=== PATIENT | female | born 1975 | race Caucasian/White ===

== ENCOUNTER → 2016-08-28 | Outpatient (CLI) | payer BC ==
[~2016-08-28] VITALS: Ht 170.2 cm; Wt 146.0 kg
[~2016-08-28] MED LIST: AMBIEN DPS10 MG PO; AUGMENTIN875 MG PO; CARVEDILOL25 MG PO; COZAAR DPS25 MG PO; DUONEB DPS3 ML IH; GLUCAGON1 MG/ML IM; GLUTOSE 1537.5 GM PO; HABITROL DPS14 MG TP; HUMALOG U-100 UNITS/ SQ; HYDROCODON-ACE1 EAC2 PO; LANTUS100 UNITS/ SQ; LASIX DPS80 MG PO; LEVEMIR100 UNIT/1 PO; MAALOX DPS30 ML PO; MICRO-K DPS10 MEQ PO; MIRALAX PACKET17 GM PO; MUCINEX600 MG PO; NASONEX NASAL S17 GM NS; NICOTINE PATCH1 EAC2 TD; NOVOLOG100 UNIT/2 SQ; PROVENTIL2.5 MG/0.5 IH; RESTORIL DPS30 MG PO; SURFAK DPS240 MG PO; TYLENOL DPS325 MG PO; VIBRAMYCIN-DPS100 M2 PO; ZAROXOLYN2.5 MG PO; ZOFRAN4 MG PO
== END | disposition home or self-care (01) ==
LOC: CARD 12:00 → EDSTATUS 08-30 08:12
DX: Z01.818 Encounter for other preprocedural examination (principal)

== ENCOUNTER 2016-10-12 20:56 | Emergency (ER) | payer BC, MEDICAID ==
[~2016-10-12 20:56] MED LIST changes: -AMBIEN DPS10 MG PO; -LANTUS100 UNITS/ SQ; -MICRO-K DPS10 MEQ PO; -MUCINEX600 MG PO; -NICOTINE PATCH1 EAC2 TD; -NOVOLOG100 UNIT/2 SQ; -PROVENTIL2.5 MG/0.5 IH; -VIBRAMYCIN-DPS100 M2 PO
--- NOTE | 2016-10-13 19:14 | ER ---
ADMIT: 10/12/2016 RM/LOC: ER [facility] MR#: [id number] [address] [address] [address]LA [address] [place] [address] Emergency Room Report SEX: F AGE: 41 : 1975 DATE: 10/12/2016 HISTORY OF PRESENT ILLNESS: The patient is a 41-year-old presents to the emergency room complaining of right upper quadrant abdominal pain for about 3 months on and off. She ate, about 2 hours later the pain worsened. She feels like food sitting in her stomach. REVIEW OF SYSTEMS: Otherwise negative. PAST MEDICAL HISTORY: Diabetes type 2 with some renal insufficiency, congestive heart failure, and hypertension, insomnia, lymph edema. MEDICATIONS: The patient takes: 1. Insulin. 2. NovoLog. 3. Levemir. 4. Carvedilol. 5. Restoril. 6. Losartan. 7. Lasix. 8. Metolazone. PHYSICAL EXAMINATION: VITAL SIGNS: 171/65, pulse 100, respirations 16, temp is 98.5, O2 sats 96%. ABDOMEN: The physical examination does show tenderness on deep palpation of right upper quadrant. No radiation. LABORATORY DATA: Lipase within normal limits. WBC is normal. Hemoglobin 10.3, BUN is 42, glucose 394. Sodium 133. Protein in the urine 2+ and glucose 1000. She improved with a GI cocktail. CLINICAL IMPRESSION: 1. Hyperglycemia. 2. Right upper quadrant abdominal pain. 3. Gastritis. 4. Renal insufficiency, chronic. The patient advised to follow up with Dr. Fung and Carafate prescription given. GUILLERMO Macias / Bernard Washington MD / silas JOB #: [id number] CC: Bernard Washington MD, Attending Physician Mary Fung MD, Family Physician
[2016-12-17] MEDS ORDERED: MICRO-K DPS10 MEQ PO (08:21)
[2016-12-17] MEDS ORDERED: PROVENTIL2.5 MG/0.5 IH (08:21)
[2016-12-17] MEDS ORDERED: LANTUS100 UNITS/ SQ (08:22)
[2016-12-17] MEDS ORDERED: NOVOLOG100 UNIT/2 SQ (08:22)
[2017-02-07] MEDS ORDERED: NOVOLOG100 UNIT/2 SQ (14:11)
[2017-02-07] MEDS ORDERED: NICOTINE PATCH1 EAC2 TD (14:12)
[2017-02-07] MEDS ORDERED: AMBIEN DPS10 MG PO (14:12)
[2017-02-07] MEDS ORDERED: MUCINEX600 MG PO (14:12)
[2017-02-07] MEDS ORDERED: VIBRAMYCIN-DPS100 M2 PO (14:13)
== END 2016-10-13 01:12 | disposition home or self-care (01) ==
LOC: ER 20:56
DX: K29.70 Gastritis, unspecified, without bleeding (principal); E11.22 Type 2 diabetes mellitus with diabetic chronic kidney disease; I12.9 Hypertensive chronic kidney disease with stage 1 through stage 4 chronic kidney disease, or unspecified chronic kidney disease; N18.9 Chronic kidney disease, unspecified; I50.9 Heart failure, unspecified; E11.65 Type 2 diabetes mellitus with hyperglycemia; F17.210 Nicotine dependence, cigarettes, uncomplicated; Z79.4 Long term (current) use of insulin

== ENCOUNTER 2016-12-15 10:43 | Observation (INO) | payer MEDICAID ==
[~2016-12-15] VITALS: Ht 170.2 cm; Wt 139.5 kg
--- NOTE | 2016-12-15 21:53 | NUR ---
12/15/161944 I entered the patient's room when an alarm on the datascope was ringing. I discovered that her sats were in the low 80s. She had her O2 off. She had previously come up on 4L from surgery. I asked to put her O2 back on and she refused. She stated her sats are that low at home all the time. I said "in the low 80s"? She stated yes. She stated she does not like the NC, it hurts her throat. I offered to put a humidity bottle on the O2 flow meter so it is not as drying and she stated that didn't help and was still refusing to wear the O2. I told her that I was going to document that she refused to wear the oxygen that was needed and she said that was okay. RN.[email or web address] 2100 & 2200. The patient wanted to sit on the edge of the bed. When moving to the edge, Christopher Rachel RN assisted and said that her sats went down into the 60s while doing this. I assisted her back into bed and her sats were in the low 70s. She had SOB after getting back to bed. I asked her if she was ready to have oxygen put back on and she said no. RN.[email or web address]
--- NOTE | 2016-12-15 21:53 | NUR ---
Requested that the patient put on O2 due to her sats being in the high 70's patient refused multiple times. Pt states that she just keeps forgetting that she is holding her breath and that is why her sats go down. Pt is currently sitting on the side of the bed in the tripod position. Pt states that she will wear her O2 when she is ready to go to bed but not before. Pt stated that the O2 was drying out her noise and a bubbler was put on Pt still refused the O2.
[2016-12-17] MEDS ORDERED: MICRO-K DPS10 MEQ PO (08:21)
[2016-12-17] MEDS ORDERED: PROVENTIL2.5 MG/0.5 IH (08:21)
[2016-12-17] MEDS ORDERED: LANTUS100 UNITS/ SQ (08:22)
[2016-12-17] MEDS ORDERED: NOVOLOG100 UNIT/2 SQ (08:22)
--- NOTE | 2017-01-11 11:41 | OR ---
ADMIT: 12/15/2016 RM/LOC: 633 [facility] MR#: [id number] [address] [address] [address] [place] [address] Operative/Delivery Room Report SEX: F AGE: 41 : 1975 Corrected: 12/18/2016 0621 [facility] SURGERY DATE: 12/15/2016 SURGEON: Yeison Antunez MD ETL DATABASE DEVELOPER: Petey Hyde MD. PREPROCEDURE DIAGNOSIS: Chronic cholecystitis. POSTPROCEDURE DIAGNOSIS: Chronic cholecystitis. PROCEDURE: Laparoscopic cholecystectomy with intraoperative cholangiogram. INDICATIONS: The patient is a morbidly obese, 41-year-old female, previously evaluated by Dr. Hyde with signs and symptoms of radiographic evidence consistent with chronic cholecystitis, who presents for laparoscopic cholecystectomy. FINDINGS: The patient was taken to the operating room. General endotracheal anesthesia was induced. The patient's abdomen was prepped and draped in normal sterile fashion. The case was begun by making a transverse, supraumbilical 5 mm skin incision using #11 blade. A retractable 5 mm port was placed in the abdomen. The abdomen was insufflated with CO2 to an intra-abdominal pressure of 15 mmHg. A camera was placed showing no bowel or vascular injury. A midepigastric 11 mm port as well as 2 right upper quadrant 5 mm ports were placed under direct vision. The case was begun by noting a very large fatty liver. We were unable to visualize the gallbladder and actually it took probably about 20 to 30 minutes to actually find the gallbladder, we had to peel the omentum, the transverse colon, and the duodenum off the gallbladder body. This gallbladder was contracted, fibrotic, thickened, we could only push against as opposed to grasp it to do our dissection. Once we had carefully identified all these structures in the gallbladder wall, we used blunt dissection with the suction device as well as electrocautery with [place] instrument to carefully dissect the gallbladder down toward what we felt was the infundibulum. At this point, due to the fibrotic and chronically indurated nature of the gallbladder, we elected to dome down the gallbladder along the liver bed using Harmonic scalpel. This again was extremely tedious and very difficult fact got into the gallbladder and there was a large amount of stones that fell out that we had eventually retrieved before and after the gallbladder was actually removed. We actually used the inside of the gallbladder to direct some of our dissection and actually attempted to get a cholangiogram catheter through the cystic duct from the inside portion of the gallbladder. When shot the cholangiogram, there was some filling of the common bile duct but I did not end up filling the duodenum, the cholangiogram catheter fell out. It was difficult to keep it in situ to actually shoot an adequate cholangiogram. We removed the cholangiogram catheter. Upgraded our 11 mm port to a 12 mm port site and elected to divide the distal infundibulum proximal cystic duct area with an Endo-JAMARCUS 45, 2.5 mm stapler. The gallbladder ADMIT: 12/15/2016 RM/LOC: 633 [facility] MR#: [id number] [address] [place] [id number] [place] [address] Operative/Delivery Room Report SEX: F AGE: 41 : 1975 was placed in EndoCatch bag, as well as collecting a lot of the fallen stones. This was brought out through the midepigastric incision after having to enlarge the fascial and skin incision. On re-examination of the operative site, we copiously irrigated the operative site, there was no bleeding. There was no bile leakage. We had read removed all stone fragments that we could see. We injected 0.5% Marcaine subdermally, subfascially for postoperative analgesia. Placed a 19-Georgian round SERGEY drain out through a right-sided abdominal 5 mm port site in the subhepatic space. It was sutured in place using a 2-0 silk suture. The epigastric fascial incision was closed with separate interrupted [id number] 0 Polysorb suture passer. The air was desufflated. The port sites removed. The skin sites were closed with interrupted 4-0 Monocryl subcuticular skin stitches. Wounds were cleaned, dried, and dressed. The patient tolerated the procedure without difficulty and transferred to recovery room in good condition. Please put a modifier on this operative note due to extreme difficulty and about a 2-1/2 hour cholecystectomy during any dictation. Yeison Antunez MD/ silas JOB #: [id number] CC: Petey Hyde, Attending Physician Mary Fung, Family Physician Corrected: 12/18/2016 0621 [email or web address]
[2017-02-07] MEDS ORDERED: NOVOLOG100 UNIT/2 SQ (14:11)
[2017-02-07] MEDS ORDERED: AMBIEN DPS10 MG PO (14:12)
[2017-02-07] MEDS ORDERED: MUCINEX600 MG PO (14:12)
[2017-02-07] MEDS ORDERED: NICOTINE PATCH1 EAC2 TD (14:12)
[2017-02-07] MEDS ORDERED: VIBRAMYCIN-DPS100 M2 PO (14:13)
== END 2016-12-16 09:10 | disposition home or self-care (01) ==
LOC: SSS 10:43 → 6PED 17:02
PROVIDERS: ADMIT Surgery
PROC: BF03YZZ Plain Radiography of Gallbladder and Bile Ducts using Other Contrast (ICD-10-PCS; principal; 2016-12-15)
PROC: 0FT44ZZ Resection of Gallbladder, Percutaneous Endoscopic Approach (ICD-10-PCS; principal; 2016-12-15)
DX: K80.12 Calculus of gallbladder with acute and chronic cholecystitis without obstruction (principal); E11.9 Type 2 diabetes mellitus without complications; J45.909 Unspecified asthma, uncomplicated; I10 Essential (primary) hypertension; Z79.899 Other long term (current) drug therapy; E66.01 Morbid (severe) obesity due to excess calories; Z68.42 Body mass index [BMI] 45.0-49.9, adult; Z79.891 Long term (current) use of opiate analgesic

== ENCOUNTER 2017-02-07 17:21 | Inpatient (IN) | payer MEDICAID ==
[~2017-02-07 17:21] MED LIST changes: +AMBIEN DPS10 MG PO; +LANTUS100 UNITS/ SQ; +MICRO-K DPS10 MEQ PO; +MUCINEX600 MG PO; +NICOTINE PATCH1 EAC2 TD; +NOVOLOG100 UNIT/2 SQ; +PROVENTIL2.5 MG/0.5 IH; +VIBRAMYCIN-DPS100 M2 PO
== END 2017-02-24 20:15 | disposition expired | DRG 166 ==
DX: J96.01 Acute respiratory failure with hypoxia (principal); G93.41 Metabolic encephalopathy; G93.1 Anoxic brain damage, not elsewhere classified; E43 Unspecified severe protein-calorie malnutrition; J18.9 Pneumonia, unspecified organism; Z51.5 Encounter for palliative care; I13.0 Hypertensive heart and chronic kidney disease with heart failure and stage 1 through stage 4 chronic kidney disease, or unspecified chronic kidney disease; N17.9 Acute kidney failure, unspecified; E87.0 Hyperosmolality and hypernatremia; I50.32 Chronic diastolic (congestive) heart failure; N18.4 Chronic kidney disease, stage 4 (severe); K92.1 Melena; E87.2 Acidosis; L02.416 Cutaneous abscess of left lower limb; T82.868A Thrombosis due to vascular prosthetic devices, implants and grafts, initial encounter; I82.621 Acute embolism and thrombosis of deep veins of right upper extremity; J44.0 Chronic obstructive pulmonary disease with (acute) lower respiratory infection; Z68.42 Body mass index [BMI] 45.0-49.9, adult; J44.1 Chronic obstructive pulmonary disease with (acute) exacerbation; K56.7 Ileus, unspecified; B37.9 Candidiasis, unspecified; E66.01 Morbid (severe) obesity due to excess calories; I89.0 Lymphedema, not elsewhere classified; E11.22 Type 2 diabetes mellitus with diabetic chronic kidney disease; F17.210 Nicotine dependence, cigarettes, uncomplicated; D63.1 Anemia in chronic kidney disease; Z79.4 Long term (current) use of insulin; Z66 Do not resuscitate